=== PATIENT | male | born 1965 | race Caucasian/White ===

== ENCOUNTER 2020-01-13 02:23 | Outpatient (CLI) | payer OTHER, SELFPAY ==
[2020-01-13 09:21] LABS: Hemoglobin A1C 5.3 % (<5.7)
[2020-01-13 09:47] LABS: ALT 69 U/L (16-63); AST 42 U/L (15-37); Albumin 4.1 g/dL (3.4-5.0); Alkaline Phosphatase 53 U/L (46-116); Bilirubin, Total 0.5 mg/dL (0.2-1.0); CREATININE 1.03 mg/dL (0.70-1.30); Calculated LDL 129 mg/dL (<100); Cholesterol 219 mg/dL (<200); HDL Cholesterol 73 mg/dL (40-60); Potassium 4.9 mmol/L (3.5-5.1); Total Protein 7.5 g/dL (6.4-8.2); Triglyceride 88 mg/dL (<150)
[2020-01-13 10:00] LABS: Bilirubin, Direct 0.15 mg/dL (0.00-0.20)
[2020-01-13 17:34] LABS: PSA, Screening 1.8 ng/mL (0.0-3.5)
== END 2020-01-13 02:43 ==
PROVIDERS: Nurse Practitioner Family; PCP Nurse Practitioner; Visit Provider Nurse Practitioner
DX: I10 Essential (primary) hypertension (principal); R74.8 Abnormal levels of other serum enzymes; Z13.1 Encounter for screening for diabetes mellitus; Z13.6 Encounter for screening for cardiovascular disorders; Z12.5 Encounter for screening for malignant neoplasm of prostate
CPT/HCPCS: 36415; 80061; 80076; 84153; 82565; 83036; 84132

== ENCOUNTER 2023-05-23 01:34 | Outpatient (CLI) | payer OTHER, SELFPAY ==
[2023-05-23 15:26] LABS: HCT 40.8 % (40.0-50.0); HGB 14.1 g/dL (13.5-17.5); MCH 34.4 pg (27.0-33.0); MCHC 34.6 % (32.0-36.0); MCV 100 fL (80-95); MPV 8.8 fL (8.0-11.0); Platelet Count 213 10^3/uL (130-400); RDW 11.9 % (11.8-14.1); RDW-SD 44.1 fL; WBC 9.18 10^3/uL (4.4-10.8)
[2023-05-23 16:09] LABS: ALT 65 U/L (16-63); AST 44 U/L (15-37); Alkaline Phosphatase 58 U/L (46-116); Anion Gap 10.4 mmol/L (3-11); BUN 27 mg/dL (7-18); Bilirubin, Total 0.5 mg/dL (0.2-1.0); CO2 23.6 mmol/L (21.0-32.0); CREATININE 1.4 mg/dL (0.70-1.30); Calcium 9.4 mg/dL (8.5-10.1); Chloride 101 mmol/L (98-107); Estimated GFR 58.26 (mL/min/1.73m2); Glucose 96 mg/dL (74-106); Potassium 4.5 mmol/L (3.5-5.1); Sodium 135 mmol/L (136-145); Total Protein 7.6 g/dL (6.4-8.2)
[2023-05-23 22:02] LABS: PSA, Screening 1.4 ng/mL (<=3.5)
== END 2023-05-23 01:35 | disposition home or self-care (01) ==
LOC: LBO 01:34
PROVIDERS: PCP Nurse Practitioner Family; Visit Provider Nurse Practitioner Family
DX: Z00.00 Encounter for general adult medical examination without abnormal findings (principal)
CPT/HCPCS: 36415; 80053; 84153; 85027

== ENCOUNTER 2024-10-01 02:38 | Outpatient (CLI) | payer OTHER, SELFPAY ==
[2024-10-01 12:29] LABS: HCT 42.3 % (40.0-50.0); HGB 14.5 g/dL (13.5-17.5); MCH 35.4 pg (27.0-33.0); MCHC 34.3 % (32.0-36.0); MCV 103 fL (80-95); MPV 9.4 fL (8.0-11.0); Platelet Count 261 10^3/uL (130-400); RBC 4.10 10^6/uL (4.36-5.78); RDW 12.2 % (11.8-14.1); RDW-SD 46.3 fL; WBC 7.87 10^3/uL (4.4-10.8)
[2024-10-01 12:50] LABS: Hemoglobin A1C 5.3 % (<5.7)
[2024-10-01 12:58] LABS: ALT 69 U/L (16-63); AST 49 U/L (15-37); Albumin 4.1 g/dL (3.4-5.0); Alkaline Phosphatase 66 U/L (46-116); Anion Gap 8.8 mmol/L (3-11); BUN 18 mg/dL (7-18); Bilirubin, Total 0.7 mg/dL (0.2-1.0); CO2 28.2 mmol/L (21.0-32.0); Calcium 9.4 mg/dL (8.5-10.1); Calculated LDL 107 mg/dL (<100); Chloride 99 mmol/L (98-107); Cholesterol 200 mg/dL (<200); Estimated GFR 77.33 (mL/min/1.73m2); Glucose 115 mg/dL (74-106); HDL Cholesterol 80 mg/dL (>or=40); Potassium 4.8 mmol/L (3.5-5.1); Sodium 136 mmol/L (136-145); TSH (W/Ref FT4) 0.76 uIU/mL (0.36-3.74); Total Protein 7.7 g/dL (6.4-8.2); Triglyceride 66 mg/dL (<150)
[2024-10-01 18:44] LABS: PSA, Screening 2.1 ng/mL (<=3.5)
== END 2024-10-01 02:39 | disposition home or self-care (01) ==
LOC: LOS 02:38
PROVIDERS: PCP Nurse Practitioner Family; Visit Provider Nurse Practitioner Family
DX: Z00.00 Encounter for general adult medical examination without abnormal findings (principal); I10 Essential (primary) hypertension; R74.8 Abnormal levels of other serum enzymes; Z12.5 Encounter for screening for malignant neoplasm of prostate
CPT/HCPCS: 36415; 80053; 80061; 84153; 85027; 83036; 84443

== ENCOUNTER 2024-10-24 15:05 | Emergency (ER) | payer OTHER, SELFPAY ==
[2024-10-24 15:10] VITALS: BP 130/79; PULSE 102; RESP 20; TEMP 37.5; O2SAT 94
--- NOTE | 2024-10-24 15:15 | DI.RAD_ITS ---
Exam(s) XR KNEE RT 3V AP,LAT,SEDRICK EXAM: XR KNEE RT 3V AP,LAT,SEDRICK CLINICAL HISTORY: twisting inj, c/f internal derangement. TECHNIQUE: 2D digital imaging was performed. COMPARISON: CR RIGHT KNEE 3 VIEWS from 07/19/2009 FINDINGS: 3 views There has been significant progression of degenerative change in the lateral compartment of the right knee when compared to 07/19/2009 which are the only prior images in our PACS. The appearance of the lateral tibial plateau is most probably related to interval tibial plateau fracture as well as probable fracture of the adjacent fibular head. There is a partially peripherally sclerotic bone lesion in the lateral tibial metaphysis which was not evident in 2010. There has been significant progression of degenerative change in the IMPRESSION: Significant changes in the right knee when compared to 2010 images. I suspect there have been interval fractures of the lateral tibial plateau and fibular head. Subsequent degenerative changes. Small joint effusion. Recommend follow-up MRI Preliminary virtual Radiology report was reviewed Final report also called by myself to ER physician 10/25/2024 at 8:30 p.m. DATA REPOSITORY: RADIATION DOSE DELIVERED:
--- NOTE | 2024-10-24 15:28 | ED.GENADUL_ITS ---
Discharge Plan Disposition Patient Disposition: Home Condition: Stable Discharge Details Clinical Impression: Internal derangement of right knee Primary Care Provider: Malini Smiley ED Provider: Jossy Garner Home Meds and New Rx's Prescriptions: No Action amlodipine 5 mg tablet 5 mg PO DAILY Qty: 90 4RF lisinopril 40 mg tablet 40 mg PO DAILY Qty: 90 4RF Discharge Instructions Instructions: Internal Derangement of the Knee (DC) Additional Instructions: You were seen in the emergency department today for evaluation after a fall with a twisting injury to her right knee. In our department a full physical examination performed, had an x-ray that showed some [id number] changes of the knee, and your exam was most concerning for a sprain or injury to the ligaments and cartilage inside of your knee. You were placed in a knee brace, which you should wear when up and about, but can take off for bathing or sleeping. Please use ice and elevation to help with swelling. Please use therapeutic dosing of Tylenol (acetaminophen) & Advil (ibuprofen) in an alternating fashion as follows: Take 1000mg of Tylenol every 6 hours without missing doses- that is 4 times per day. [place] in between the Tylenol doses, take 600mg of Advil also on a 6 hour schedule, that is also 4 times per day. With this strategy, you will be taking something for fever/pain as often as every 3 hours. The daily maximum dosing of Tylenol is 4000mg, and the daily maximum dosing of Advil is 2400mg. Please note that some common cold medications & prescription pain medications may contain acetaminophen and you need to read OTC drug labels and factor that in to maximum daily doses. I have provided you with a referral to meet with our orthopedic doctors, you should see them in approximately 1 to 2 weeks. Please follow-up with your primary care provider in the next few days to discuss this visit and any symptoms that change, worsen, or persist. Thank you for allowing us to be part of your care. Referrals: Tyrell Pacheco MD [ [facility] STAFF PHYSICIAN, Orthopaedic Surgical] - 1 week HPI General Mode of arrival: ambulatory . Date/Time Provider Initiated Documentation: 10/24/24 15:11 . Limitations to Documentation: no limitations . Information obtained by: patient, family and old records reviewed . HPI Narrative: This is a 58-year-old male patient with a past medical history significant for hypertension and osteoarthritis who is presenting for evaluation of a right knee injury. The patient was in his normal state of health at around 10 or 11 this morning, was fishing and standing on a rock. He went to step up to another platform, and the rack slid and his right knee twisted and he fell down into the water. He reports that he did not strike his head or injure any other part of his body when he fell. He states that he was able to get out of the water, return home and has been able to put weight on his knee. Putting weight on his knee does worsen the pain that he is experiencing, but mostly he states he just feels like his knee is going to crumble or is unstable under him. He reports no numbness, tingling, or weakness distal to the injury. He took Tylenol and ibuprofen prior to arrival for management of pain, and states that when he is still he has fairly controlled pain located in the back and around the lateral aspect of the knee. He is able to flex and extend his knee but this does reproduce the anterior pain. Has never had any injuries or surgeries of this knee before. Related Data Home Medications ?Medication ?Instructions ?Recorded ?Confirmed amlodipine 5 mg tablet 5 mg PO DAILY #90 tabs 08/2810/24/24 lisinopril 40 mg tablet 40 mg PO DAILY #90 tabs 05/3 10/24/24 Previous Rx's ?Medication ?Instructions ?Recorded amlodipine 5 mg tablet 5 mg PO DAILY #90 tabs 08/28 lisinopril 40 mg tablet 40 mg PO DAILY #90 tabs 08/01 Allergies Allergy/AdvReac Type Severity Reaction Status Date / Time No Known Allergies Allergy Verified 10/24/24 15:15 General Stated Complaint: Orthopedic TYRELL: 4 Exam Narrative Exam Narrative: Gen: Awake and alert, in no apparent distress HEENT: Non-icteric sclera Neck: Supple Lungs: No apparent respiratory distress, normal respiratory effort. CV: Appears well perfused Abdomen: Non-distended MSK: Moves 4 extremities without apparent limitation in ROM, though flexion and extension of the right knee does reproduce the pain located in the anterior region. The patient has a small knee effusion, no external skin changes. He has some tenderness to palpation over the lateral joint line and posterior aspect of the knee. He has no defects or significant tenderness to palpation of the quadriceps or patellar tendons, nor the patella itself. He has no calf tenderness or proximal fibula tenderness. There is some laxity of the Nando's, no significant laxity or reproduction of tenderness with valgus or varus stressing. Posterior drawer test with firm endpoint. Strong DP pulses a nd good CSM's distal to this injury. Skin: Visualized skin without rashes, cyanosis. Neuro: Normal Gait, no obvious focal deficits or facial asymmetry. Speaks in full, clear sentences. Psych: Appropriate for situation. Course Vital Signs Vital signs: Vital Signs Temperature 37.5 C 10/24/24 15:10 Pulse 102 H 10/24/24 15:10 Respiratory Rate 20 10/24/24 15:10 Blood Pressure 130/79 10/24/24 15:10 Pulse Oximetry 94 10/24/24 15:10 Temperature 37.5 C 10/24/24 15:10 Temperature Source Tympanic 10/24/24 15:10 Pulse 102 H 10/24/24 15:10 Respiratory Rate 20 10/24/24 15:10 Blood Pressure 130/79 10/24/24 15:10 Blood Pressure Position Sitting 10/24/24 15:10 Pulse Oximetry 94 10/24/24 15:10 Oxygen Delivery Method Room Air 10/24/24 15:10 Oxygen Flow Rate 0 10/24/24 15:10 Pain Level 4 10/24/24 15:10 Medical Decision Making This is a 58-year-old male patient presenting for evaluation of a knee injury. My differential includes but is not limited to internal derangement/sprain, considered fracture or dislocation. No evidence for neurovascular derangement on my physical examination. We will obtain an x-ray of the affected knee. The patient is already taken Tylenol and ibuprofen, and states that he already did some ice on the area and does not desire further cold therapy. - X-ray reviewed by myself, showing no evidence of fracture or dislocation though the patient does have extensive degenerative changes. A small lucency is also noted by radiology in the lateral tibia that will require nonemergent follow-up with MRI. As I am concerned for internal derangement the patient will likely require MRI imaging in the outpatient environment anyways. He was placed in a knee immobilizer and was able to bear weight without c rutches. I counseled him on multimodal pain management, and placed in a referral for orthopedics. At this time, the patient has had a full medical evaluation and is safe for discharge to home. They are hemodynamically stable, ambulatory, and tolerating PO. They are understanding of the follow-up plan and return precautions. They left our facility without incident. Jossy Garner MD [facility], [facility] All Active Problems (Updated 10/24/24 @ 17:11 by Jossy Garner MD) Internal derangement of right knee (Acute) Bicipital tendinitis of right shoulder (Acute) Umbilical hernia (Acute) Seasonal allergies (Acute) See above discussion for medication recommendations. Abnormal liver enzymes (Acute 09/14/15) Essential hypertension (Acute) Family hx of prostate cancer (Acute) father and grandfather Generalized osteoarthritis (Acute) Tubulovillous adenoma (Acute 12/12/15) Medical History Abnormal liver enzymes Essential hypertension Surgical History Colonoscopy - IV Sedation (12/12/15) herniography b/l femoral Family History Mother No problems noted. Father , 76 Neoplasm PROSTATE Prostate cancer Sister No problems noted. Maternal Grandfather , 77 No problems noted. Paternal Grandfather , 72 Prostate cancer Maternal Grandmother , 79 No problems noted. Paternal Grandmother , 90 No problems noted. Son No problems noted. Daughter No problems noted. Daughter No problems noted. Social History (Updated 06/10/24 @ 11:24 by Cely Perez) Smoking/Tobacco Use Status: Former Tobacco Use tobacco type: smokeless tobacco Quit Date: 04/01/89 Smokeless tobacco user: chewing tobacco and snuff Quit status: quit date established Second Hand Exposure: Yes Smoking risk assessment performed?: Yes Alcohol Intake: current Alcohol Intake frequency: 3 or more drinks per day Alcohol type: beer and hard liquor Details: 3-4 drinks on typical day, 6 or more drinks weekly Drug use: Never Substance use type: does not use Adopted: No Caregiver/Support person: No Household members: spouse Housing: house Number of Children: 3 number of grandchildren: 4 Communication Needs: None Education Level: college Details: 2 years Do you need help understanding health information?: Never current occupation: Parking Enforcement Specialist Pets and animals: No Sexually active: Yes Do you think of yourself as: straight/heterosexual Current gender identity: male What is your relationship status?: How often do you talk on the phone with friends or family?: three or more times per week How often do you get together with friends or relatives?: twice per week How often do you attend rastafari or christianity services?: decline to answer Do you belong to any clubs or organized social groups?: no Panel score (0-1 are the most socially isolated patients): 2 What type of physical activity do you participate in: none Frequency: does not exercise Supriya/Pentecostal: Non druze Special supriya needs: No Seatbelt use: always Helmet use: No Drive intox or ride w/intox light truck driver: Yes (Doesn't drive while intoxicated but rides with intoxicated light truck driver) Drive intox or w/intox light truck driver: rarely Firearms in home: Yes (Both boxes checked) Firearms unloaded and locked: Yes Do you feel safe at home: Yes Do you feel safe in your relationship?: Yes Victim of physical abuse: No Victim of emotional abuse: No Victim of sexual abuse: No Would you like helpful sources: No PAWSS Have you Been Recently Intoxicated or Drunk Within the Last 30 days?: No Have you Ever Experienced Previous Episodes of Alcohol Withdrawal?: No Have you ever Experienced Withdrawal Seizures?: No Have you ever Experienced Delirium Tremens(DT)s?: No Have you ever undergone Alcohol Rehabilitation Treatment (i.e, inpt ot outpatient treatment programs)?: No Have you ever Experienced Blackouts?: No Have you ever Combined Alcohol with other Downers within the last 90 days?: No Have you ever Combined Alcohol with any other Substance of Abuse during the last 90 days?: No Positive Blood Alcohol level on Presentation? [PCS.BAL]: Unable to Obtain Evidence of Increased Autonomic Activity (i.e. HR>120, tremor, sweating, agitation, nausea)?: No Result: 0
[2024-10-24 16:32] VITALS: BP 130/79; PULSE 95; RESP 18; O2SAT 95
--- NOTE | 2024-10-24 17:11 | DI.VRAD_ITS ---
PROCEDURE INFORMATION: Exam: XR Right Knee Exam date and time: 10/24/2024 3:48 PM Age: 58 years old Clinical indication: Injury or trauma; Fall; Other: Twisting injury TECHNIQUE: Imaging protocol: Radiologic exam of the right knee. Views: 3 views. COMPARISON: No relevant prior studies available. FINDINGS: Bones/joints: Degenerative changes of the medial femorotibial joint with osteophytes. Advanced degenerative changes of the lateral femoral tibial joint with joint space narrowing, sclerosis, and osteophytes. Mild degenerative changes of the patellofemoral joint. Incompletely evaluated 3 cm lucency in the lateral tibia with sclerotic margins. Rounded 1.2 cm ossification along the anterior superior tibial tuberosity. Soft tissues: Unremarkable. IMPRESSION: 1. Degenerative changes of the knee. 2. 3 cm lucency involving the lateral tibia with sclerotic margins incompletely evaluated on these x-rays. Recommend obtaining prior films for comparison and/or MR of the knee on a nonemergent basis. Dictated and Authenticated by: Ena Paulino MD. Orderin [facility]. Madhav Fenton MD
== END 2024-10-24 17:17 | disposition home or self-care (01) ==
PROVIDERS: Emergency Provider Emergency Medicine; PCP Nurse Practitioner Family
DX: M23.8X1 Other internal derangements of right knee (principal); S89.81XA Other specified injuries of right lower leg, initial encounter; X50.1XXA Overexertion from prolonged static or awkward postures, initial encounter; Y93.01 Activity, walking, marching and hiking; Y92.838 Other recreation area as the place of occurrence of the external cause; Z87.891 Personal history of nicotine dependence
CPT/HCPCS: 73562; 99283

== ENCOUNTER 2024-10-28 12:07 | Outpatient (CLI) | payer OTHER, SELFPAY ==
--- NOTE | 2024-10-28 11:45 | DI.MRI_ITS ---
Exam(s) MR LOWER JOINT RT WO CT LOWER EXTREMITY RT WO EXAM: MR LOWER JOINT RT WO CLINICAL HISTORY: F/U ABNORMAL KNEE XRAY, internal derangement rt knee, M23.91, R93.6. TECHNIQUE: Multiplanar multisequence MRI was performed. CT of the right performed with multi-slice acquisition and multi-planar and/or 3D reconstructions. COMPARISON: CR,XR XR KNEE RT 3V AP,LAT,SEDRICK from 10/24/[address] LOWER EXTREMITY RT WO from 10/28/2024 FINDINGS: BONES: There is a comminuted fracture of the lateral tibial plateau extending coronal oblique fashion through the mid to posterior portion. There step-off at the articular surface of approximately 4 millimeters. Other multiple posterior comminuted fragments. Smoothly marginated cystic area noted at the lateral posterior tibial plateau through which the fracture lines extend. Adjacent fluid collections extending inferiorly, deep to the popliteus muscle. It has benign features. There is a comminuted but not significantly displaced fracture of the head of the proximal fibula. JOINTS: No joint effusion is present. Articular cartilage: Patellofemoral joint: Diffuse thinning, greatest near the apex. Periarticular spurring. Medial femoral tibial joint: Articular severe thinning of the cartilage extending down to bone. Prominent spurring from the lateral femoral condyle and lateral tibial plateau. Lateral femoral tibial joint: Articular cartilage is unremarkable. LIGAMENTS/TENDONS: Anterior Cruciate: Indistinct, severe partial to full-thickness tear. Posterior Cruciate: Unremarkable. Medial Collateral:Unremarkable. Lateral Collateral ligament complex: Unremarkable. Extensor mechanism: Unremarkable. Medial retinaculum: Unremarkable. Lateral retinaculum: Unremarkable. Popliteus: Unremarkable. MENISCI: The medial meniscus is severely degenerated, particularly the posterior horn.. The lateral meniscus is severely degenerated, particularly the posterior horn. MUSCLES: Edema in the sartorius muscle and popliteus muscle. SOFT TISSUES: Edema in the subcutaneous fat greater posteromedially. Small Allan's cyst. IMPRESSION: Comminuted, depressed fracture of the posterolateral tibial plateau. Comminuted nondisplaced fracture of the head of the fibula. Cystic area in the posterior lateral tibial plateau at the inferior aspect of the fracture. Adjacent fluid collection extending deep to popliteus muscle. The findings likely represent a benign bone cyst. Severe partial tear versus full-thickness tear of the ACL. Severe degenerative changes of the lateral femoral tibial joint space. Severe degenerative changes of the posterior horn and body of both menisci. DATA REPOSITORY:
== END 2024-10-28 12:27 ==
LOC: DI 12:07
PROVIDERS: PCP Nurse Practitioner Family; Visit Provider Student in an Organized Health Care Education/Training Program
DX: S82.251A Displaced comminuted fracture of shaft of right tibia, initial encounter for closed fracture (principal); X58.XXXA Exposure to other specified factors, initial encounter
CPT/HCPCS: 73721; 73700

== ENCOUNTER 2024-11-26 11:29 | Outpatient (CLI) | payer OTHER, SELFPAY ==
--- NOTE | 2024-11-26 08:15 | DI.RAD_ITS ---
Exam(s) XR KNEE RT 2V AP,LAT EXAM: XR KNEE RT 2V AP,LAT CLINICAL HISTORY: F/U R TIBIAL PLATEAU FX. TECHNIQUE: 2D digital imaging was performed of the right knee. Two views obtained. AP and lateral views were obtained. COMPARISON: CR,XR XR KNEE RT 3V AP,LAT,SEDRICK from 10/24/[address] LOWER EXTREMITY RT WO from 10/28/2024 FINDINGS: BONES: There is stable alignment of the comminuted fracture involving the lateral tibial plateau. There is stable depression of the fracture. There is also stable alignment of the proximal fibular fracture. There is some callus formation seen about the fibular fracture posteriorly, on the lateral view. No bony destructive lesion is seen. There is a stable cystic lesion in the lateral aspect of the proximal tibial metaphysis. JOINTS: There is a joint effusion present. Marked degenerative changes are seen particularly in the lateral femoral tibial joint. SOFT TISSUE: The well corticated osseous density anterior to the tibia is unchanged. Atherosclerotic calcification is present. IMPRESSION: 1. Stable alignment of the proximal femoral fracture and the lateral tibial plateau fracture. 2. Joint effusion. 3. Osteoarthritis of the knee particularly in the lateral femoral tibial joint. DATA REPOSITORY: RADIATION DOSE DELIVERED:
== END 2024-11-26 11:30 | disposition home or self-care (01) ==
LOC: DIORS 11:29
PROVIDERS: PCP Nurse Practitioner Family; Visit Provider Student in an Organized Health Care Education/Training Program
DX: S82.123A Displaced fracture of lateral condyle of unspecified tibia, initial encounter for closed fracture (principal)
CPT/HCPCS: 73560

== ENCOUNTER 2024-12-24 10:15 | Outpatient (CLI) | payer OTHER, SELFPAY ==
--- NOTE | 2024-12-24 08:15 | DI.RAD_ITS ---
Exam(s) XR KNEE RT 2V AP,LAT EXAM: XR KNEE RT 2V AP,LAT CLINICAL HISTORY: F/U R TIBIAL PLATEAU FX. TECHNIQUE: 2D digital imaging was performed. Three views. COMPARISON: CR,XR XR KNEE RT 3V AP,LAT,SEDRICK from 10/24/2024 CR XR KNEE RT 2V AP,LAT from 11/26/2024 FINDINGS: BONES: There is no significant change in the alignment of the lateral tibial plateau fracture and proximal fibular fracture. The smoothly marginated cystic areas again noted in the lateral tibial metaphysis. JOINTS: There is severe narrowing of the lateral femoral tibial joint space with prominent periarticular spurring. Medial femoral tibial joint spaces and palate patellofemoral joint spaces are grossly maintained. A small joint effusion is seen. SOFT TISSUE: Chronic bony density above tibial tubercle. Mild anterior soft tissue swelling. IMPRESSION: Stable alignment of lateral tibial plateau fracture. Advanced degenerative changes the lateral femoral tibial joint again noted. DATA REPOSITORY: RADIATION DOSE DELIVERED:
== END 2024-12-24 10:16 | disposition home or self-care (01) ==
LOC: DIORS 10:15
PROVIDERS: PCP Nurse Practitioner Family; Visit Provider Student in an Organized Health Care Education/Training Program
DX: S82.123A Displaced fracture of lateral condyle of unspecified tibia, initial encounter for closed fracture (principal); M17.11 Unilateral primary osteoarthritis, right knee
CPT/HCPCS: 73560

== ENCOUNTER 2025-01-21 14:08 | Outpatient (CLI) | payer OTHER, SELFPAY ==
--- NOTE | 2025-01-21 08:00 | DI.RAD_ITS ---
Exam(s) XR STANDING ALIGNMENT EXAM: XR STANDING ALIGNMENT CLINICAL HISTORY: TKR Planning. TECHNIQUE: 2D digital imaging was performed. Four images were obtained. COMPARISON: CR RIGHT KNEE 3 VIEWS from 07/19/2009 CR,XR XR KNEE RT 3V AP,LAT,SEDRICK from 10/24/2024 CR XR KNEE RT 2V AP,LAT from 11/26/2024 CR XR KNEE RT 2V AP,LAT from 12/24/2024 FINDINGS: BONES: The hips are well maintained. In the right knee, there are marked degenerative changes present characterized by joint space narrowing and osteophytes. The findings are marked in the lateral femoral tibial joint. In the left knee, moderately severe degenerative changes are present predominantly in the lateral femoral tibial joint. The ankles are well maintained.The right lower extremity is approximately 1 cm longer than the left lower extremity. SOFT TISSUE: Normal. IMPRESSION: Osteoarthritis of the knees, right greater than left. DATA REPOSITORY: RADIATION DOSE DELIVERED:
== END 2025-01-21 14:09 | disposition home or self-care (01) ==
LOC: DIORS 14:09
PROVIDERS: PCP Nurse Practitioner Family; Visit Provider Physician Assistant
DX: M17.11 Unilateral primary osteoarthritis, right knee (principal)
CPT/HCPCS: 77073

== ENCOUNTER 2025-03-22 01:46 | Outpatient (CLI) | payer OTHER, SELFPAY ==
[2025-03-22 16:05] LABS: HCT 41.5 % (40.0-50.0); HGB 13.8 g/dL (13.5-17.5); MCH 34.0 pg (27.0-33.0); MCHC 33.3 % (32.0-36.0); MCV 102 fL (80-95); MPV 9.2 fL (8.0-11.0); Platelet Count 268 10^3/uL (130-400); RBC 4.06 10^6/uL (4.36-5.78); RDW 12.0 % (11.8-14.1); RDW-SD 45.3 fL; WBC 9.01 10^3/uL (4.4-10.8)
[2025-03-22 16:43] LABS: Anion Gap 7.6 mmol/L (3-11); BUN 24 mg/dL (9-23); CO2 26.4 mmol/L (20.0-31.0); Calcium 9.8 mg/dL (8.3-10.6); Chloride 107 mmol/L (98-107); Glucose 82 mg/dL (74-106); Potassium 4.4 mmol/L (3.5-5.1); Sodium 141 mmol/L (136-145)
== END 2025-03-22 01:47 | disposition home or self-care (01) ==
LOC: LBO 01:46 → LBN 15:35
PROVIDERS: PCP Nurse Practitioner Family; Visit Provider Student in an Organized Health Care Education/Training Program
DX: M17.11 Unilateral primary osteoarthritis, right knee (principal); Z01.818 Encounter for other preprocedural examination
CPT/HCPCS: 80048; 85027

== ENCOUNTER 2025-03-30 08:24 | Day surgery (SDC) | payer OTHER, SELFPAY ==
[2025-03-30] VITALS (21 sets, daily range): BP systolic 109–144; BP diastolic 65–91; PULSE 84–110; RESP 12–18; TEMP 36–36.8; O2SAT 87–96; BMI 39.2
--- NOTE | 2025-03-30 07:11 | PDOC.DSDIS_ITS ---
Date of service: 03/30/25 Discharge Plan Disposition Patient Disposition: Home Condition: Good Discharge Details Reason For Visit: Right knee DJD Attending Provider: Tyrell Pacheco Primary Care Provider: Malini Smiley Home Meds and New Rx's Prescriptions: New acetaminophen 500 mg tablet 1,000 mg PO Q8H PRN Qty: 90 0RF Rx Instructions: Take two tablets up to every 8 hours as needed for pain aspirin 81 mg tablet,delayed release (DR/EC) 81 mg PO BID 30 Days Qty: 60 0RF celecoxib [Celebrex] 200 mg capsule 200 mg PO BID PRNQty: 60 0RF Rx Instructions: Take one tablet twice daily for pain and inflammation docusate sodium [Colace] 100 mg capsule 100 mg PO BID Qty: 28 0RF pantoprazole 40 mg tablet,delayed release (DR/EC) 40 mg PO DAILY Qty: 14 0RF Rx Instructions: Take one tablet once daily dexamethasone 4 mg tablet 4 mg PO DAILY Qty: 2 0RF Rx Instructions: Take one tablet once daily for two days gabapentin 300 mg capsule 300 mg PO QHS Qty: 14 0RF Rx Instructions: Take one tablet at bedtime oxycodone 5 mg tablet 5 mg PO Q4H PRNQty: 18 0RF Rx Instructions: Take one tablet up to every 4 hours as needed for severe postoperative pain Continued amlodipine 5 mg tablet 5 mg PO DAILY Qty: 90 4RF lisinopril 40 mg tablet 40 mg PO DAILY Qty: 90 4RF Discharge Instructions Additional Instructions: Total Knee Discharge Instructions Activity: The most important activity is to walk and to work on gentle motion (both flexion and extension). You should try to take short walks a few times a day. It is important that when resting you work on keeping the knee straight. Avoid putting a pillow behind the knee as this will encourage flexion. Work on range of motion exercises as provided by Physical Therapy. - Start outpatient physical therapy within 2 weeks. - You should wear the HELIO hose on both legs for 2 weeks. You may remove these at night. You may also use any compression sock in place of the HELIO hose. - Utilize [employer] to review exercises, see videos on exercises and obtain basic information pertaining to your surgery and your recovery. Dressing: Remove the Huan wrap by 2 days after your surgery and put on the HELIO stocking given to you from the hospital. Keep the surgical dressing (underneath the HUAN wrap) in place for at least one week. After the first week it may be removed and replaced with light gauze and tape or nothing. The wound and dressing may get wet after 3 days but avoid soaking the dressing or otherwise it will need to be changed. Many people prefer covering the dressing with cling wrap (saran wrap) to minimize it from getting soaked. If it gets wet, just pat dry. If it starts to peel off then it will need to be changed. Medications: - You should take Tylenol and anti-inflammatory Celebrex as your primary pain control medications. If the Celebrex is too expensive or not covered, please call the office for another alternative (Advil/Ibuprofen or Naproxen/Aleve) - You have been prescribed a stronger pain medication Oxycodone for breakthrough pain, take as needed as prescribed. - You have also been prescribed a stomach acid reduction agent Pantoprozole to help reduce stomach acid and reflux. - You have been prescribed Gabapentin to take at night for restlessness and nerve pain. - You will be taking Aspirin 81mg twice a day for DVT prevention unless instructed otherwise. - You have also been prescribed Decadron to take to control post-operative nausea and pain. You will start this tomorrow. - If you have constipation you should take Colace (which has been prescribed) or Miralax (which is available [id number]). It takes most people 3-4 days to have a bowel movement. Follow-up: 2 weeks If you have any acute concerns or questions, please do not hesitate to contact the office at [phone]. You may contact Dr. Pacheco with any questions after hours through the hospital at [phone] or on his cell phone at [phone]. Stand Alone Forms: Portal Information Referrals: Tyrell Pacheco MD [ [facility] STAFF PHYSICIAN, Orthopaedic Surgical] Equipment/Supplies: Walker Activity:: Elevate Remove Dressings/Wound Care:: Do Not Remove Shower/Bathe:: Cover Diet:: As Tolerated Discharge Orders Discharge Orders: Discharge Order (Routine); Ordered 03/30/25 Ordered By: Petty Bowie
[2025-03-30] MEDS: Acetaminophen 500 MG TAB 1000 MG PO (09:04)
[2025-03-30] MEDS: Gabapentin 300 MG CAP PO (09:05)
[2025-03-30] MEDS: Celecoxib 200 MG CAP 400 MG PO (09:05)
--- NOTE | 2025-03-30 09:19 | W.ANESPRE ---
General Info Date of Service Date Performed: 03/30/25 Height: 5 ft 7 in Weight: 113.8 kg Body Mass Index (BMI): 39.2 Surgical Procedure: Operation Date: 03/30/25 10:10 Proposed Procedure Side Surgeon p Knee Total Arthroplasty, Stemmed Tibia (FB, Possible Cone) Right Tyrell Pacheco MD Meds Allergies and Home Medications Allergies Allergy/AdvReac Type Severity Reaction Status Date / Time No Known Allergies Allergy Verified 03/22/25 14:14 Home Medication ?Medication ?Instructions ?Recorded amlodipine 5 mg tablet 5 mg PO DAILY #90 tabs 08/28/24 lisinopril 40 mg tablet 40 mg PO DAILY #90 tabs 08/28/24 acetaminophen 500 mg tablet 1,000 mg (2 x 500 mg) PO Q8H PRN 03/30/25 pain #90 tabs aspirin 81 mg tablet,delayed 81 mg PO BID 30 days #60 tabs 03/30/25 release celecoxib 200 mg capsule (Celebrex) 200 mg PO BID PRN #60 caps 03/30/25 dexamethasone 4 mg tablet 4 mg PO DAILY #2 tabs 03/30/25 docusate sodium 100 mg capsule 100 mg PO BID #28 caps 03/30/25 (Colace) gabapentin 300 mg capsule 300 mg PO QHS #14 caps 03/30/25 oxycodone 5 mg tablet 5 mg PO Q4H PRN #18 tabs 03/30/25 pantoprazole 40 mg tablet,delayed 40 mg PO DAILY #14 tabs 03/30/25 release Current Visit Medications: Current Medications Generic Name Dose Route Start Last Admin Trade Name Panq PRN Reason Stop Dose Admin Acetaminophen 1,000 mg 03/30/25 06:00 03/30/25 09:04 Acetaminophen 500 Mg Tab PO 03/30/25 23:59 1,000 mg PREOP FLASH Administration Celecoxib 400 mg 03/30/25 06:00 03/30/25 09:05 Celecoxib 200 Mg Cap PO 03/30/25 23:59 400 mg PREOP FLASH Administration Gabapentin 300 mg 03/30/25 06:00 03/30/25 09:05 Gabapentin 300 Mg Cap PO 03/30/25 23:59 300 mg PREOP FLASH Administration Hydromorphone HCl 0.5 mg 03/30/25 07:10 Hydromorphone 2 Mg/Ml Syr IVP 04/29/25 07:09 Q2H PRN PRN Ringer's Solution 1,000 mls @ 80 mls/hr 03/30/25 06:00 IV 03/30/25 23:59 INFUSION FLASH Cefazolin Sodium/Dextrose 2 gm in 50 mls @ 100 mls/hr 03/30/25 06:00 Ancef Duplex IVPB 03/30/25 23:59 PREOP FLASH Tranexamic Acid/Sodium Chloride 1,000 mg in 100 mls @ 600 mls/hr 03/30/25 06:00 IVPB 03/30/25 23:59 PREOP FLASH Cefazolin Sodium/Dextrose 1 gm in 50 mls @ 100 mls/hr 03/30/25 08:00 Ancef Duplex IVPB 03/31/25 00:29 Q8H FLASH Oxycodone HCl 0 mg 03/30/25 07:10 Oxycodone 5 Mg Tab PO 04/29/25 07:09 Q3H PRN PRN Pain Sodium Chloride 0 ml 03/30/25 06:00 Normal Saline Flush 10 Ml Syr IV 03/30/25 23:59 PRN PRN Sodium Chloride 0 ml 03/30/25 06:00 Normal Saline 10 Ml Vial IJ 03/30/25 23:59 DIRECTED PRN Sterile Water 0 ml 03/30/25 06:00 Water,Injection,Sterile 10 Ml Vial IJ 03/30/25 23:59 DIRECTED PRN Tranexamic Acid 1,300 mg 03/30/25 07:10 Tranexamic Acid 650 Mg Tab PO 04/29/25 07:09 ONCE PRN postoperative PFSH Active Problems Active Problems: Problem Status Onset Code History of total right knee replacement Acute 03/30/25 Z96.651 Closed fracture of lateral portion of tibial plateau Acute 10/24/24 S82.123A Bicipital tendinitis of right shoulder Acute M75.21 Umbilical hernia Acute K42.9 Seasonal allergies Acute J30.2 Abnormal liver enzymes Acute 09/14/15 R74.8 Essential hypertension Acute I10 Family hx of prostate cancer Acute Z80.42 Generalized osteoarthritis Acute M15.9 Tubulovillous adenoma Acute 12/12/15 D36.9 Medical History Medical History Abnormal liver enzymes Essential hypertension Surgical History Surgical History herniography b/l femoral Colonoscopy - IV Sedation (12/12/15) Tobacco Smoking/Tobacco Use Status: Former Tobacco Use Smokeless tobacco user: chewing tobacco and snuff Passive smoking exposure: Yes Second hand exposure: Yes Alcohol Alcohol Intake: current Alcohol intake frequency: 3 or more drinks per day Alcohol type: beer and hard liquor Details: 3-4 drinks on typical day, 6 or more drinks weekly Substance Use Substance use: Never Substance use type: does not use Vital Signs and Lab Results Vital Signs Most Recent Vital Signs in EMR: Most Recent Vital Signs Temp Pulse Resp BP Pulse Ox 36 C L 110 H 18 144/90 H 96 03/30/25 08:28 03/30/25 08:28 03/30/25 08:28 03/30/25 08:28 03/30/25 08:28 Lab Results Complete Blood Count: WBC, (4.4-10.8) 9.01 10^3/uL 03/22/25, 14:55 RBC, (4.36-5.78) 4.06 10^6/uL L 03/22/25, 14:55 Hgb, (13.5-17.5) 13.8 g/dL 03/22/25, 14:55 Hct, (40.0-50.0) 41.5 % 03/22/25, 14:55 Plt Count, (130-400) 268 10^3/uL 03/22/25, 14:55 Complete Metabolic Panel: Sodium, (136-145) 141 mmol/L 03/22/25, 14:55 Potassium, (3.5-5.1) 4.4 mmol/L 03/22/25, 14:55 Chloride, (98-107) 107 mmol/L 03/22/25, 14:55 Carbon Dioxide, (20.0-31.0) 26.4 mmol/L 03/22/25, 14:55 BUN, (9-23) 24 mg/dL H 03/22/25, 14:55 Creatinine, (0.73-1.18) 1.27 mg/dL H 03/22/25, 14:55 Est GFR (CKD-EPI 2020), (mL/min/1.73m2) 57.78 03/22/25, 14:55 Calcium, (8.3-10.6) 9.8 mg/dL 03/22/25, 14:55 Glucose, (74-106) 82 mg/dL 03/22/25, 14:55 Anesthesia Assessment and Plan Anesthesia History Personal History: No History of Anesthesia Complications Family History: No Family History of Anesthesia Complications Exercise Tolerance Exercise Tolerance: Metabolic Equivalents>4 Cardiac & Pulmonary Exam Cardiac Exam: Normal S1/S2 Heart Sounds Pulmonary Exam: Clear Bilateral Breath Sounds Implantable Cardiac Device Does patient have a Pacemaker or an ICD?: No Airway Exam Known Difficult Airway: No Mallampati Class: 3 Mouth Opening: Normal (> 3cm) Thyromental Distance: Greater than 3 cm Neck Range of Motion: Full ROM Neck Circumference: Thick Teeth Condition: Normal Dentition ASA Classification ASA Score: ASA 2 Emergency Case?: No NPO Status NPO Status: NPO Clears >2 hours, Solids >8 hours Anesthesia Plan Resuscitation Status: Full Code Anesthesia Technique: General Anesthesia Airway Planned: Endotracheal Tube Pain Management: Surgeon and patient request nerve block Monitors Used: Standard Monitors and SedLine
[2025-03-30] MEDS: Lactated Ringers 1,000 ML 80 ML IV ×2 (09:20→11:53)
[2025-03-30] MEDS: ceFAZolin 2 GM/50 ML BAG IVPB (10:13)
[2025-03-30] MEDS: TRANEXAMIC ACID/SOD. CHL. 1,000 MG/100 ML BAG 600 MG IVPB (10:34)
[2025-03-30] MEDS: ROPIvacaine/EPI/CLONIDINE/KET 50 ML SYRINGE IJ (10:50)
--- NOTE | 2025-03-30 11:01 | W.ANESNERVE ---
Nerve Block Single Injection Procedure Date and Time Date Performed: 03/30/25 Procedure Start: 09:50 Location Where Procedure Performed Procedure Location: Day Surgery Unit Reason Performed: Postoperative Analgesia Requesting Provider: Tyrell Pacheco Timeout Performed Timeout Performed: Yes Monitoring Used ECG, Blood Pressure, SpO2 and See EMR for corresponding vital signs Sterility Sterility: Hand Hygiene, Surgical Cap, Surgical Mask, Sterile Gloves and Chlorhexidine Sedation Given During Procedure Sedation Given (Indicate Dose Given): Versed IV Dose:: 2mg Patient Mental Status Patient Mental Status: Sedate with meaningful communication Nerve Block 1st Nerve Block: Laterality: Right Block Type: Adductor Canal Ultrasound Image Saved?: Yes Needle / Catheter Used: 100mm SonoPlex II Local Anesthetic Bolus (Indicate Dose Given): Lidocaine used for local infiltration of skin, Injected in 3-5ml increments after negative blood aspiration, Bupivacaine 0.25% Dose:: 10mL and Exparel Dose:: 10mL Additives (Indicate Dose Given): None Ultrasound: Sterile probe cover and gel used Nerve Stimulator: Supplement to Ultrasound use and No twitch or parasthesia noted < 0.5 mA Paresthesia: None Procedure Tolerated: No Complications and Patient tolerated well Procedure Outcome: Successful Procedure Comment: Site prepped and dry for 3/minutes, time out completed, Versed administered, nerve block completed. Patient's present in room. Patient tolerated well. Performed By: Olivia Galvan
--- NOTE | 2025-03-30 13:12 | W.ANESPOSTOP ---
Postoperative Evaluation Date, Time and Location Date Performed: 03/30/25 Time Performed: 13:12 Patient Location: Day Surgery Unit Vital Signs Most Recent Imported Vital Signs: Most Recent Vital Signs Temp Pulse Resp BP Pulse Ox 36.3 C L 85 16 118/74 87 L 03/30/25 12:50 03/30/25 12:50 03/30/25 12:50 03/30/25 12:50 03/30/25 12:50 Pain Score Most Recent Pain Score: Most Recent Pain Score Pain Level 3 03/30/25 12:50 Assessment Mental Status: Awake (Alert & Oriented to Patient Baseline) Airway and Respiratory Function: Abnormal Respiratory exam (See explanation) (Will use incentive spirometry, patient reports no SOB) Cardiovascular Function: Hemodynamically Stable Hydration Status: Adequately Hydrated Nausea & Vomiting: No Nausea or Vomiting Pain: Pain is tolerable per patient Peripheral Nerve Block: Regional nerve block not resolved at time of post operative discharge Postoperative Comments:: SpO2 92%
[2025-03-30] MEDS: Tranexamic Acid 650 MG TAB 1300 MG PO (13:43)
--- NOTE | 2025-03-30 14:35 | ROE_ITS ---
Operative Note Operative Note PRE-OP DIAGNOSIS: Right Knee Post-traumatic osteoarthritis POST-OP DIAGNOSIS: same PROCEDURE: Right Total Knee Replacement with Intraoperative Navigation SURGEON: Tyrell Pacheco DIRECTOR INFORMATION: Petty Bowie ANESTHESIA TYPE: General LMA/ETT Refer to Anesthesia Record ESTIMATED BLOOD LOSS: 200 PATHOLOGY: none sent TOURNIQUET TIME: 0 COMPLICATIONS: None Patient was transported to: PACU Patient's condition: stable Implants: 1. Depuy Attune Cementless Cruciate Retaining Femoral Component, Size 7 2. Depuy Attune Cementless Fixed Bearing Tibial Component, Size 7 3. Depuy Attune 7x8mm CR/FB Poly 4. Depuy Attune Patellar Component, Size 38 mm Indications: I have seen Roland in clinic for symptoms of RIGHT knee arthritis, worsened after a tibial plateau fracture, confirmed with radiographic findings. Roland has exhausted nonoperative methods and was having significant limitations in daily function and desired better function and less pain. I discussed the technical details of a knee replacement. I explained the risks of the procedure to include, but not limited to, bleeding, infection, pain, stiffness, fracture, damage to nerves and vessels, damage to muscles and tendons, loosening, need for repeat procedure, blood clot and cardiopulmonary demise. Despite these risks, Roland elected to proceed. Findings: There was significant signs of arthritis throughout the knee. There is deformity about the lateral tibia but also an irregularity to the distal aspect the lateral femoral condyle. After making the tibial cut there is no noticeable fracture line. There was no cystic change. There was no defect in the bone and the bone was quite solid. Therefore I continue with the cementless knee replacement rather than any stemmed or revision component. Procedure Description: Roland was greeted in the preoperative holding area where the correct side was identified and marked. The consent was reviewed with the patient and signed. The history and physical was updated. All questions were answered. Preoperative mediacations were administered: Acetaminophen 1000mg, Celebrex 400mg, and Gabapentin 300mg. An adductor canal block was then administered by the anesthesia team in the DSU. Roland was taken back to the operating room. A general anesthestic was then administered. The patient was placed into the supine position on the operating room table. Posts were placed for positioning during the procedure. All bony prominences were well padded. Prophylactic antibiotics in the form of Cefazolin were administered. 1g of Tranxemic Acid was given intravenously within 30 minutes of incision. The right leg was then prepped with Chloraprep and draped in a standard fashion with impervious stockinette. A second prep with Chloraprep was performed prior to application of Iodine impregnated skin protection. A timeout to confirm correct identity, side and site, procedure, allergies, anesthesia, and medical concerns was performed. With the knee in some flexion, a midline incision was made overlying the knee. Full thickness skin flaps were raised once the extensor mechanism was encountered. These were raised medially and laterally. Any bleeding was controlled with electrocautery. Once the extensor mechanism was fully exposed, a medial parapatellar arthrotomy was performed in a flexed position. All bleeding from the arthrotomy and the geniculate arteries was coagulated. A medial subperiosteal peel was performed with electrocautery to the midcoronal plane. The fat pad was removed while keeping the patellar tendon protected. The anterior distal femur synovium was removed for later visualization. The ACL and PCL were resected and the anterior horn of the lateral meniscus was transected. The knee was then flexed with the patella everted. Large osteophytes from the tibia were removed. A single starting pin was then placed 1cm anterior to the PCL insertion and the notch in the direction of the femoral head. The OrthoAlign device was applied over the pin. It was oriented to be in line with the epicondylar axis and the trochlear groove. It was then pinned into place. The navigation computer was then turned on and calibrated. The distal femur cut was set at 0 degrees varus and 3.5 degrees flexion. The distal femur cutting guide then was positioned for a 9mm cut. The distal femur was cut with an oscillating saw while protecting the soft tissues. The tibia was then addressed. The OrthoAlign device was placed over the tibial tubercle and medial tibia and secured into position. Once again, OrthoAlign was calibrated and then set for a 1 degree varus cut and 5.5 degrees of posterior slope. With this locked into position, the cut thickness stylus was used to assess cut thickness. The lateral side, most involved side, was set for a 4mm cut. This was then held in position and pinned into place with 2 additional pins and a cross pin for stability. The medial and lateral collateral ligaments were protected and the cut was performed. With this completed, it was assessed and noted to be of appropriate dimensions. The guide and OrthoAlign was removed. A spacer block was inserted and the knee was brought into extension to ensure enough space was present. . The Orthoalign gap balancing device was then placed in extension. This was used to ensure that the ligaments were properly balanced with up to 2 to 3 mm laxity laterally compared medially. The extension gap was measured as 19mm. The knee was then brought into 90 degrees of flexion and the ligament counter supply worker was once again placed. Under the same amount of force the flexion gap was measured. The Attune specific jig was placed and the flexion gap was made to match the extension gap. The femur was then sized as a size 7. The 4-in-1 cutting guide was the placed. An nishi wing was used to confirm appropriate position of the anterior cut to avoid notching. This cutting guide was ensured to be flush on the cut surface and then pinned into place with headed pins. While protecting the soft tissues, quad tendon, and collateral ligaments, the anterior and posterior cuts were performed with a saw. The central two pins were removed and the posterior and anterior chamfers were cut next. The notch-cutting guide was placed. This was pinned to lateralize the femoral component as much as possible while keeping it flush on the cut surface. This was then pinned into position. A saw was used to make the notch cut. A rasp smoothed the cut surfaces. The medial and lateral menisci were removed. A trial femoral component was then inserted, impacted down to the cut surfaces, and the lug holes were drilled. A provisional trial tibial component was placed and the knee was brought through range of motion. There was noted to be excellent extension and flexion. There was no significant instability. The patella was tracking without thumbs. A size 8mm polyethylene component provided the best range of motion and stability with less than 2mm gapping with medial and lateral stress and full extension without significant hyperextension. The tibial cut surface was fully exposed. The tibia was then sized as a 7. The tibia had been previously marked during trialing to correspond to the center of the tibial component to help with rotation. The trial was aligned to this daniela, approximately rotated to the medial 1/3rd of the tibial tubercle. The trial was pinned into place. The tibia was prepared with a reamer and a keel punch and lug holes. The knee was then brought into extension and the patella was measured as 24mm. Using the patellar clamp and cut guide, this was resected to a flat surface with at least 13mm of thickness remaining. The size 38mm patella fit the best. This was oriented and then clamped into position. The lugs were drilled. The trial components were removed. The final components were opened on the back table. The periosteal and capsular tissues, especially posteriorly, around the knee were then systematically injected with a periarticular cocktail consisting of 246mg of Ropivacaine, 0.5mg of Epinephrine, 0.08mg of Clonidine, and 30mg of Ketorolac, diluted to 100cc. On the back table, with the implants opened, the cement was mixed. One batch of high viscosity cement was prepared with vacuum assistance. After the cement was ready a small amount was placed on the cut surface of the patella and the patellar button was clamped into position and held. Then, the knee components were placed. Starting with the tibial component, the tibia was subluxed anteriorly and the lug holes of the component were lined up. The tibia was then impacted with an impactor and mallet until the tibial component was in contact with the tibia. Then, the femoral component was inserted. The lug holes were aligned and the component was impacted into position. The final polyethylene component was inserted. The knee was irrigated with Surgiphor Betadine solution. This was allowed to sit in the knee for 3 minutes and then it was thoroughly irrigated out with saline. After the cement had finally cured, approximately 15min, the clamp was removed from the patella. The knee was then taken through range of motion. The patella was tracking with a no-thumbs technique. The capsule was then reapproximated with a No. 1 Vicryl at multiple locations. The capsule was finally closed with a No. 2 Stratafix, barbed suture. Deep tissues were then reapproximated with 0 Vicryl and 2-0 Vicryl. The skin was closed with a running 3-0 Monocryl in a subcuticular fashion. This was reinforced with skin glue. A Mepilex silver dressing was applied along with a [id number] SAVANAH wrap. A CryoCuff was applied. Roland was transferred to the hospital bed without difficulty an suffering no apparent complication. Roland has a good prognosis. Physical therapy will start today and without restrictions, weight-bearing as tolerated. Aspirin 81mg BID will be used for DVT prophylaxis. Date of Procedure: 03/30/25
--- NOTE | 2025-03-30 14:43 | IN_ITS ---
PT Notes Visit Reasons: Right knee DJD Physical Therapy Day Surgery Initial Evaluation Date:03/30/2025 Referring Doctor: Petty Bowie [employer] SUPERVISOR/ Dr Pacheco PT Orders: PT CONSULT: s/p Ortho surgery Precautions:WBAT RLE Patient Profile/Admitting Diagnosis: Pt is a 59 yo male presenting s/p elective R RKA under spinal anesthesia with nerve block by Dr Pacheco on 03/30/2025. Post op uncomplicated PMHX: Closed fracture of lateral portion of tibial plateau (Acute 10/24/24) Arthritis of right knee (Acute) Bicipital tendinitis of right shoulder (Acute) Umbilical hernia (Acute) Seasonal allergies (Acute) See above discussion for medication recommendations. Abnormal liver enzymes (Acute 09/14/15) Essential hypertension (Acute) Family hx of prostate cancer (Acute) father and grandfather Generalized osteoarthritis (Acute) Tubulovillous adenoma (Acute 12/12/15) Medical History Abnormal liver enzymes Essential hypertension Surgical History herniography b/l femoral Colonoscopy - IV Sedation (12/12/15) Social History/Home Situation:Pt resides in multilevel home with 3STE with rail and 6 steps to his bedroom and bath. Pt independent ADL, ambulation , meal prep, med management Equipment Owned/DME:crutches, cane , FWW (properly fitted to pt) Subjective: Pt reports he is feeling good and ready to try walking. He states he has used a device before when he broke his femur Objective: [] General Observation: presented semireclined on stretcher with cryocuff to right knee , present Mental Status: A+Ox4 able to follow instructions, cooperative agreeable to participate in evaluation Pain:right knee 2/10 ROM: [] BUE: WFL Right Lower Extremity: WFL except knee 0-100 degrees Left Lower Extremity: WFL Strength: [] BUE: 5/5 Right Lower Extremity: Hip flexion: 3 /5; hip abduction: 3- /5; hip extension: 3- /5; knee extension: 3 /5; knee flexion: 2+/5 ankle DF: 3 /5 ; ankle PF: 3 /5; strong quad set and SLR without lag Left Lower Extremity: 5/5 Sensation: intact Bed Mobility/Transfers: [] Supine to sit Supervision Sit to stand SBA with cues to push up Stand to sit SBA with cues to reach back Bed to chair SBA with FWW Gait: amb with FWW 125 feet with FWW SBA with cues for quad activation initially then able to progress to reciprocal pattern with decreased knee flexion, and reduced step length stairs: 3 4 steps? and 2 6 steps with rails SBA with continuous cues for sequencing step to pattern Balance: [] Static Sitting: Normal Dynamic Sitting:good Static Standing: good with UE support Dynamic Standing:Fair + with UE support Special Tests: [] Mobility Limitations Standardized Measure [] [facility] 6 clicks Basic Mobility Inpatient Short Form: [] Raw Score: 22 CMS Score:20.91% Informed Consent/Education: Patient instructed in purpose of PT consult. treatment: 24246 Packet containing TKA exercise protocol has been given to patient. Education and training on initial set of 5 reps of exercises that can be done at home have been completed with patient. Assessment: Patient presents with clinical signs and symptoms consistent with current/admitting diagnoses that have resulted to mobility limitations, gait instability, generalized weakness, and impairment of motor control as demonstrated by the following impairment level findings: 1. Decreased strength to right knee major muscle groups 2. Impaired standing balance 3. Limitation of joint range of motion in right knee 4. Pain right knee 5. decline in functional activity tolerance Impairments are contributing to the following functional limitations: 1. Inability to safely ambulate without assistive device 2. Increase completion time for mobility ADL performance 3. Increased fall risk 4. difficulty performing stairs without assistance Patient is assessed as a low complexity based on the following: History: 59-year-old male with impairment level findings, functional limitations, and past medical history as indicated above Examination: Demonstrable impairment in strength, balance, and mobility level with underlying impairments and functional limitations as documented above Presentation: stable/ evolving Decision Making: LOW Goals: N/A. PT evaluation and 1-2 treatment sessions only for functional mobility training using recommended AD and for HEP instruction. Plan of Care/Treatment Plan: N/A. PT evaluation and 1-2 treatment session only for functional mobility training using recommended AD and for HEP instruction. DISCHARGE RECOMMENDATIONS: Home with HEP and Outpatient PT as scheduled TREATMENT CODE/TIME:65059,[id number]/ [id number] Thank you for the opportunity to participate in the care of this patient. Fabiola Heredia, PT [facility]
== END 2025-03-30 15:10 | disposition home or self-care (01) ==
LOC: SUR 08:24
PROVIDERS: PCP Nurse Practitioner Family; Visit Provider Student in an Organized Health Care Education/Training Program
PROC: (CPT 27447; principal; 2025-03-30 10:00)
DX: M17.11 Unilateral primary osteoarthritis, right knee (principal); G89.18 Other acute postprocedural pain
CPT/HCPCS: 27447; 20985; 64447; 97110; 97161; C1776; J0665; J0666; J0690; J1171; J1805; J2250; J2371; J2401; J2404; J2405; J2598; J2704; J3010; J3475